=== PATIENT | female | born 1950 | race Caucasian/White ===

== ENCOUNTER 2021-02-11 09:37 | Inpatient (IN) ==
[2021-02-11] MEDS ORDERED: *HR* Midazolam HCl 5 MG/5 ML VIAL IVP ONE ×2 (09:38→10:22)
[2021-02-11] MEDS ORDERED: *HR* Propofol 200 MG/20 ML VIAL IVP ONE (09:38)
[2021-02-11] MEDS ORDERED: *HR* EPINEPHrine 1 MG/10 ML SYRINGE ONE (09:45)
[2021-02-11] MEDS ORDERED: Dexamethasone Sodium Phos/PF 10 MG/ML VIAL ONE (09:47)
[2021-02-11] MEDS ORDERED: *HR* EPINEPHrine 0.3 MG/0.3 ML (PEN) ONE (09:57)
[2021-02-11] MEDS ORDERED: 0.9 % Sodium Chloride 1,000 ML ONE (10:03)
[2021-02-11] MEDS ORDERED: Isovue-370 500 ML BOTTLE IVP ONE (10:13)
[2021-02-11] MEDS ORDERED: *HR* Midazolam HCl 2 MG/2 ML VIAL IVP ONE (10:19)
[2021-02-11 10:30] LABS: Basophils % 0.5 %; Eosinophils # 0.2 K/mcL (0.0-0.6); Eosinophils % 2.8 %; Hematocrit 41.7 % (35.3-44.9); Hemoglobin 13.7 g/dL (11.5-15.4); Immature Granulocytes % 0.5 % (0-4); Lymphocytes # 1.2 K/mcL (0.6-4.6); Lymphocytes % 19.8 %; Mean Corpuscular HGB Conc 32.9 g/dL (31.6-35.5); Mean Corpuscular Hemoglobin 29.1 pg (28.0-33.3); Mean Corpuscular Volume 88.5 fL (83.0-100.0); Mean Platelet Volume 10.6 fL (9.4-12.4); Monocytes # 0.5 K/mcL (0.0-1.3); Monocytes % 8.5 %; Neutrophils # 4.2 K/mcL (1.6-8.9); Platelet Count 240 K/mcL (140-400); Red Blood Count 4.71 M/mcL (3.82-4.97); Red Cell Distribution Width 12.9 % (11.5-14.5); Segmented Neutrophils % 67.9 %; White Blood Count 6.2 K/mcL (4.3-11.1)
[2021-02-11 10:37] LABS: Prothrombin Time 11.3 Seconds (9.4-12.1)
[2021-02-11 10:39] LABS: Activated Partial Thrombo Time 32.8 Seconds (26.0-36.0)
[2021-02-11 10:49] LABS: BUN/Creatinine Ratio 22 (6-26); Blood Urea Nitrogen 18 mg/dL (8-23); Calcium 9.2 mg/dL (8.6-10.3); Carbon Dioxide 29 mEq/L (23-29); Chloride 99 mEq/L (98-107); Glucose 98 mg/dL (70-105); Osmolality,Calculated 282 (280-300); Potassium 3.6 mEq/L (3.5-5.1); Sodium 135 mEq/L (136-145); eGFR For African Americans > 60 (> 60); eGFR For Non-African Americans > 60 (> 60)
[2021-02-11 10:53] LABS: C-Reactive Protein 47 mg/L (Less than 10)
[2021-02-11] MEDS: FentaNYL (PF) 1,000 MCG/100 ML IV.SOLN IVC SCH ×2 (12:12→21:17)
[2021-02-11 13:18] LABS: Influenza A PCR Negative (Negative); Influenza B PCR Negative (Negative); Resp. Syncytial Virus PCR Negative (Negative)
[2021-02-11 13:22] LABS: SARS-CoV-2 by PCR (In House) Positive (Negative)
[2021-02-11] MEDS ORDERED: 0.9 % Sodium Chloride 250 ML ONE (15:00)
[2021-02-11] MEDS ORDERED: Albuterol 2.5 MG/3 ML NEBULIZER IH PRN (15:29)
[2021-02-11] MEDS ORDERED: Naloxone 0.4 MG/ML INJ IVP PRN (15:29)
[2021-02-11 16:35] LABS: ABG Base Excess 1 mEq/L (-2 to 3); ABG HCO3 24 mEq/L (21-27); ABG Oxygen Saturation 99 % (95-98); ABG PCO2 35 mmHg (35-45); ABG PH 7.45 pH Units (7.32-7.45); ABG PO2 119 mmHg (85-104); ABG TCO2 25 mEq/L (20-26); Blood Gas Modality ASSIST CONTROL; Blood Gas VT 500 cc
[2021-02-11] MEDS: Famotidine 20 MG/2 ML VIAL IVP SCH (18:35)
[2021-02-12 04:15] LABS: ABG Base Excess 0 mEq/L (-2 to 3); ABG HCO3 24 mEq/L (21-27); ABG Oxygen Saturation 98 % (95-98); ABG PCO2 35 mmHg (35-45); ABG PH 7.45 pH Units (7.32-7.45); ABG PO2 104 mmHg (85-104); ABG TCO2 25 mEq/L (20-26); Blood Gas VT 500 cc
[2021-02-12 05:44] LABS: VBG Ionized Calcium 1.12 mmol/L (1.15-1.35)
[2021-02-12 05:46] LABS: Hematocrit 37.2 % (35.3-44.9); Mean Corpuscular HGB Conc 32.5 g/dL (31.6-35.5); Mean Corpuscular Hemoglobin 28.4 pg (28.0-33.3); Mean Corpuscular Volume 87.3 fL (83.0-100.0); Mean Platelet Volume 10.6 fL (9.4-12.4); Platelet Count 225 K/mcL (140-400); Red Blood Count 4.26 M/mcL (3.82-4.97)
[2021-02-12 05:47] LABS: Hemoglobin 12.1 g/dL (11.5-15.4)
[2021-02-12 06:01] LABS: Alanine Aminotransferase 10 Units/L (7-52); Albumin 3.9 g/dL (3.5-5.7); Albumin/Globulin Ratio 1.3 (1.1-2.2); Alkaline Phosphatase 77 Units/L (34-104); Aspartate Amino Transferase 12 Units/L (13-39); BUN/Creatinine Ratio 23 (6-26); Bilirubin,Total 0.3 mg/dL (0.3-1.0); Blood Urea Nitrogen 19 mg/dL (8-23); Carbon Dioxide 23 mEq/L (23-29); Chloride 105 mEq/L (98-107); Globulin 2.9 g/dL (2.4-3.5); Glucose 125 mg/dL (70-105); Osmolality,Calculated 282 (280-300); Phosphorous 3.9 mg/dL (2.7-4.5); Potassium 3.8 mEq/L (3.5-5.1); Sodium 134 mEq/L (136-145); Total Protein 6.8 g/dL (6.4-8.9); eGFR For African Americans > 60 (> 60); eGFR For Non-African Americans > 60 (> 60)
[2021-02-12] MEDS: Famotidine 20 MG/2 ML VIAL IVP SCH ×2 (06:08→17:04)
[2021-02-12] MEDS: *HR* Enoxaparin 40 MG/0.4 ML SYRINGE SQ SCH (06:09)
[2021-02-12 06:18] LABS: Ferritin 104 ng/mL (10-120)
[2021-02-12] MEDS: FentaNYL (PF) 1,000 MCG/100 ML IV.SOLN IVC SCH ×2 (07:50→19:30)
[2021-02-12] MEDS ORDERED: Artificial Tears SOLN 15 ML BOTTLE BOTH EYES PRN (20:45)
[2021-02-13] MEDS: Chlorhexidine Rinse 15 ML MOUTHWASH MM SCH ×3 (00:34→20:03)
[2021-02-13] MEDS: Artificial Tears SOLN 15 ML BOTTLE BOTH EYES SCH ×4 (00:35→11:39)
[2021-02-13 04:23] LABS: ABG Base Excess 0 mEq/L (-2 to 3); ABG HCO3 24 mEq/L (21-27); ABG Oxygen Saturation 99 % (95-98); ABG PCO2 36 mmHg (35-45); ABG PH 7.44 pH Units (7.32-7.45); ABG PO2 128 mmHg (85-104); ABG TCO2 26 mEq/L (20-26); Blood Gas Modality ASSIST CONTROL; Blood Gas VT 500 cc
[2021-02-13] MEDS: FentaNYL (PF) 1,000 MCG/100 ML IV.SOLN IVC SCH (05:15)
[2021-02-13 05:31] LABS: VBG Ionized Calcium 1.09 mmol/L (1.15-1.35)
[2021-02-13 05:35] LABS: Basophils % 0.1 %; Hematocrit 34.5 % (35.3-44.9); Hemoglobin 11.4 g/dL (11.5-15.4); Immature Granulocytes % 0.5 % (0-4); Lymphocytes % 13.6 %; Mean Corpuscular Hemoglobin 29.2 pg (28.0-33.3); Mean Corpuscular Volume 88.5 fL (83.0-100.0); Mean Platelet Volume 10.7 fL (9.4-12.4); Monocytes # 0.6 K/mcL (0.0-1.3); Monocytes % 7.2 %; Platelet Count 202 K/mcL (140-400); Red Cell Distribution Width 13.1 % (11.5-14.5); Segmented Neutrophils % 78.6 %; White Blood Count 7.6 K/mcL (4.3-11.1)
[2021-02-13 05:49] LABS: BUN/Creatinine Ratio 33 (6-26); Blood Urea Nitrogen 27 mg/dL (8-23); Calcium 8.7 mg/dL (8.6-10.3); Carbon Dioxide 22 mEq/L (23-29); Chloride 108 mEq/L (98-107); Glucose 113 mg/dL (70-105); Magnesium 2.2 mg/dL (1.6-2.6); Osmolality,Calculated 292 (280-300); Phosphorous 4.2 mg/dL (2.7-4.5); Potassium 4.1 mEq/L (3.5-5.1); Sodium 138 mEq/L (136-145); eGFR For African Americans > 60 (> 60); eGFR For Non-African Americans > 60 (> 60)
[2021-02-13] MEDS: Famotidine 20 MG/2 ML VIAL IVP SCH ×2 (05:50→17:33)
[2021-02-13] MEDS: *HR* Enoxaparin 40 MG/0.4 ML SYRINGE SQ SCH (05:50)
[2021-02-13] MEDS ORDERED: Albuterol 2.5 MG/3 ML NEBULIZER IH PRN (14:26)
[2021-02-14 01:26] LABS: Hematocrit 38.1 % (35.3-44.9); Hemoglobin 12.3 g/dL (11.5-15.4); Mean Corpuscular HGB Conc 32.3 g/dL (31.6-35.5); Mean Corpuscular Volume 89.9 fL (83.0-100.0); Mean Platelet Volume 10.7 fL (9.4-12.4); Platelet Count 204 K/mcL (140-400); Red Blood Count 4.24 M/mcL (3.82-4.97); White Blood Count 9.3 K/mcL (4.3-11.1)
[2021-02-14 01:44] LABS: BUN/Creatinine Ratio 31 (6-26); Blood Urea Nitrogen 24 mg/dL (8-23); Calcium 8.4 mg/dL (8.6-10.3); Carbon Dioxide 24 mEq/L (23-29); Chloride 106 mEq/L (98-107); Glucose 87 mg/dL (70-105); Osmolality,Calculated 293 (280-300); Potassium 3.7 mEq/L (3.5-5.1); Sodium 140 mEq/L (136-145); eGFR For African Americans > 60 (> 60); eGFR For Non-African Americans > 60 (> 60)
[2021-02-14] MEDS: Famotidine 20 MG/2 ML VIAL IVP SCH ×2 (05:37→17:07)
[2021-02-14] MEDS: *HR* Enoxaparin 40 MG/0.4 ML SYRINGE SQ SCH (05:37)
[2021-02-14] MEDS: dexAMETHasone 4 MG TABLET PO SCH (07:38)
[2021-02-14] MEDS: Chlorhexidine Rinse 15 ML MOUTHWASH MM SCH ×2 (07:39→21:37)
[2021-02-15 05:06] LABS: Hematocrit 39.1 % (35.3-44.9); Hemoglobin 12.7 g/dL (11.5-15.4); Mean Corpuscular HGB Conc 32.5 g/dL (31.6-35.5); Mean Corpuscular Hemoglobin 29.2 pg (28.0-33.3); Mean Corpuscular Volume 89.9 fL (83.0-100.0); Mean Platelet Volume 10.5 fL (9.4-12.4); Platelet Count 217 K/mcL (140-400); Red Blood Count 4.35 M/mcL (3.82-4.97); Red Cell Distribution Width 12.9 % (11.5-14.5); White Blood Count 6.7 K/mcL (4.3-11.1)
[2021-02-15] MEDS: *HR* Enoxaparin 40 MG/0.4 ML SYRINGE SQ SCH (05:28)
[2021-02-15] MEDS: Famotidine 20 MG/2 ML VIAL IVP SCH (05:28)
[2021-02-15 05:31] LABS: BUN/Creatinine Ratio 29 (6-26); Blood Urea Nitrogen 25 mg/dL (8-23); Calcium 8.5 mg/dL (8.6-10.3); Carbon Dioxide 24 mEq/L (23-29); Chloride 105 mEq/L (98-107); Glucose 90 mg/dL (70-105); Osmolality,Calculated 294 (280-300); Potassium 3.3 mEq/L (3.5-5.1); Sodium 140 mEq/L (136-145); eGFR For African Americans > 60 (> 60); eGFR For Non-African Americans > 60 (> 60)
[2021-02-15 08:12] VITALS: BP 179/78; PULSE 67; TEMP 98.2; O2SAT 94
[2021-02-15] MEDS: Chlorhexidine Rinse 15 ML MOUTHWASH MM SCH (08:52)
[2021-02-15] MEDS: dexAMETHasone 4 MG TABLET PO SCH (08:52)
[2021-02-15] MEDS ORDERED: hydroCHLOROthiazide 25 MG TABLET PO SCH (09:00)
[2021-02-15] MEDS ORDERED: Acetaminophen 325 MG TABLET PO ONE (09:14)
== END 2021-02-15 12:44 | disposition home or self-care (01) | DRG 208 ==
LOC: EMEROOARM 09:37 → SUATTDRO 13:54 → ICNU 13:54 → 3BNU 02-13 16:51
PROVIDERS: ADMIT Internal Medicine; ATTEND Family Medicine